=== PATIENT | male | born 2000 | race Hispanic/Latino ===

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

== ENCOUNTER 2021-05-02 11:13 | Emergency (ER) | payer BC, OTHER ==
--- OUTSIDE RECORDS SUMMARY | 2021-05-02 11:16 | XMS REPORT | Continuity of Care Document ---
:[address] [facility] t Address [address] [place] [address] Care Team Providers Name Role Phone Paulojhoana Emily JACKSON Attending Clinician Lab, Fam Pob I Attending Clinician Unavailable Problems This patient has no known problems. Allergies, Adverse Reactions, Alerts This patient has no known allergies or adverse reactions. Medications This patient has no known medications. Procedures This patient has no known procedures. Encounters Start End Encounter Admission Attending Care Care Encounter Source Date/Time Date/Time Type Type Clinicians Facility Department ID 2021-01-02 2021-01-02 Emergency Kristin [facility] [id number] 10:57:00 12:46:00 Deidra Diaz [place] [id number] [place] [id number] [place] [phone] [id number] 2020-03-18 2020-03-21 Laboratory Lab, [facility] [id number] 08:40:00 09:04:56 Only Fam Pob I Health [id number] [place] [id number] [facility] [phone] nal [address] Results This patient has no known results.
--- NOTE | 2021-05-02 11:50 | EDPHYS ---
Physician Documentation [facility] Name: Omar Steele Age: 21 yrs Sex: Male : 2000 Arrival Date: 05/02/2021 Time: 11:20 Bed Waiting Private MD: ED Physician Guanaco Luu HPI: 05/02 11:45 This 21 yrs old Male presents to ER via Ambulatory with complaints of Shoulder rn Pain, neck pain. 11:45 The patient or guardian complains of pain. right trapezius and right rn sternocleidomastoid. Context: The problem was sustained at home, resulted from an unknown reason, The patient reports no decreased range of motion. The patient reports no obvious deformity. Onset: The symptoms/episode began/occurred 3 day(s) ago. Modifying factors: the symptoms are alleviated by remaining still, The symptoms are aggravated by movement. Associated signs and symptoms: Pertinent negatives: chest pain, shortness of breath, tingling. Severity of symptoms: At their worst the symptoms were moderate, in the emergency department the symptoms are unchanged. The patient has not experienced similar symptoms in the past. The patient has not recently seen a physician. Patient reports 2 or 3 days of right posterior neck pain and right trapezius pain, radiates to right shoulder. 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 No weakness or numbness of the arm. States tried tramadol not helping. Denies chest pain. - Immunization history:: Client reports having NOT received the Covid vaccine. - Family history:: not pertinent. - Hospitalizations: : No recent hospitalization is reported. ROS: 11:45 Constitutional: Negative for fever, chills, and weight loss, Eyes: Negative for injury, rn pain, redness, and discharge, ENT: Negative for injury, pain, and discharge, Neck: Positive for injury and pain Cardiovascular: Negative for chest pain, palpitations, and edema, Respiratory: Negative for shortness of breath, cough, wheezing, and pleuritic chest pain, Back: Negative for injury and pain, MS/Extremity: Negative for injury and deformity, Skin: Negative for injury, rash, and discoloration, Neuro: Negative for headache, weakness, numbness, tingling, and seizure. Exam: 11:45 Constitutional: This is a well developed, well nourished patient who is awake, alert, rn and in no acute distress. Head/Face: Normocephalic, atraumatic. Eyes: Pupils equal round and reactive to light, extra-ocular motions intact. Lids and lashes normal. Conjunctiva and sclera are non-icteric and not injected. Cornea within normal limits. Periorbital areas with no swelling, redness, or edema. Neck: No midline tenderness Chest/axilla: Normal chest wall appearance and motion. Nontender with no deformity. No lesions are appreciated. Skin: Warm, dry with normal turgor. Normal color with no rashes, no lesions, and no evidence of cellulitis. MS/ Extremity: Pulses equal, no cyanosis. Neurovascular intact. Full, normal range of motion. Equal circumference. No bony tenderness. Neuro: Awake and alert, GCS 15, oriented to person, place, time, and situation. Cranial nerves II-XII grossly intact. Motor strength 5/5 in all extremities. Sensory grossly intact. Cerebellar exam normal. Normal gait. Vital Signs: 11:31 BP 143 / 75; Pulse 71; Resp 18; Temp 98.5; Pulse Ox 100% on R/A; da3 MDM: 11:45 Differential diagnosis: tendonitis, Muscle spasm, radiculopathy. Data reviewed: vital rn signs, nurses notes, and as a result, I will discharge patient. Counseling: I had a detailed discussion with the patient and/or guardian regarding: the historical points, exam findings, and any diagnostic results supporting the discharge/admit diagnosis, the need for outpatient follow up, to return to the emergency department if symptoms worsen or persist or if there are any questions or concerns that arise at home. Special discussion: I discussed with the patient/guardian in detail that at this point there is no indication for admission to the hospital. It is understood, however, that if the symptoms persist or worsen the patient needs to return immediately for re-evaluation. 11:49 Patient medically screened. rn 11:55 ED course: Patient declines any prescriptions. States he is going to go to the rn [employer]men[employer]. doctor.. Administered Medications: No medications were administered Disposition Summary: 05/02/21 11:49 Discharge Ordered Location: Home rn Problem: new rn Symptoms: are unchanged rn Condition: Stable rn Diagnosis - Sprain of joints and ligaments of other parts of neck, initial encounter rn - Radiculopathy, cervical region rn - Muscle spasm rn Followup: rn - With: Private Physician - When: As needed - Reason: Recheck today's complaints, Re-evaluation by your physician Discharge Instructions: - Discharge Summary Sheet rn - Cervical Radiculopathy rn - Cervical Sprain rn - Muscle Cramps and Spasms rn Forms: - Medication Reconciliation Form rn - Thank You Letter 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
--- NOTE | 2021-05-02 11:50 | ER ---
Nurse's Notes [facility] Name: Omar Steele Age: 21 yrs Sex: Male : 2000 Arrival Date: 05/02/2021 Time: 11:20 Bed Waiting Private MD: Diagnosis: Sprain of joints and ligaments of other parts of neck, initial encounter;Radiculopathy, cervical region;Muscle spasm Presentation: 05/02 11:28 Chief complaint: Patient states: Right shoulder pain. Coronavirus screen: Client denies da3 travel out of the [place] in the last 14 days. Ebola Screen: No symptoms or risks identified at this time. Risk Assessment: Do you want to hurt yourself or someone else? Patient reports no desire to harm self or others. 11:28 Method Of Arrival: Ambulatory da3 11:28 Acuity: BETTY 5 da3 12:17 Initial Sepsis Screen: Does the patient meet any 2 criteria? No. Patient's initial ss sepsis screen is negative. Does the patient have a suspected source of infection? No. Patient's initial sepsis screen is negative. Onset of symptoms is unknown. Triage Assessment: 11:30 General: Appears in no apparent distress. comfortable, Behavior is calm, cooperative. da3 - Immunization history:: Client reports having NOT received the Covid vaccine. - Family history:: not pertinent. - Hospitalizations: : No recent hospitalization is reported. Screenin:16 Abuse screen: Denies threats or abuse. Denies injuries from another. Nutritional ss screening: No deficits noted. Tuberculosis screening: Never had TB. Fall Risk None identified. Assessment: 12:16 General: Appears in no apparent distress. comfortable, Behavior is calm, cooperative. ss Neuro: Level of Consciousness is awake, alert, obeys commands. Cardiovascular: Capillary refill < 3 seconds is brisk in bilateral fingers Patient's skin is warm and dry. Respiratory: Airway is patent Respiratory effort is even, unlabored, Respiratory pattern is regular, symmetrical. GI: No signs and/or symptoms were reported involving the gastrointestinal system. Derm: Skin is intact, is healthy with good turgor, Skin is dry, Skin is pink, warm \T\ dry. normal. Musculoskeletal: Circulation, motion, and sensation intact. Range of motion: intact in all extremities, Swelling absent. Vital Signs: 11:31 BP 143 / 75; Pulse 71; Resp 18; Temp 98.5; Pulse Ox 100% on R/A; da3 ED Course: 11:20 Patient arrived in ED. mr 11:23 Guanaco Luu MD is Attending Physician. rn 11:30 Triage completed. da3 12:16 Patient has correct armband on for positive identification. Bed in low position. Call ss light in reach. 12:16 No provider procedures requiring assistance completed. Patient did not have IV access ss during this emergency room visit. Administered Medications: No medications were administered Outcome: 11:49 Discharge ordered by . rn 12:16 Discharged to home ambulatory. ss 12:16 Condition: good 12:16 Discharge instructions given to patient, family, Instructed on discharge instructions, follow up and referral plans. medication usage, Demonstrated understanding of instructions, follow-up care, medications, Prescriptions given X 2. 12:18 Patient left the ED. ss Signatures: Silva Gonzalez mr Guanaco Luu MD MD rn Smirch, Shelby, RN RN ss Allan, David, RN RN da3
[2021-05-02 12:22] VITALS: BP 143/75; TEMP 98.5; O2SAT 100
== END 2021-05-02 12:18 | disposition home or self-care (01) ==
LOC: ER 11:13
DX: S13.8XXA Sprain of joints and ligaments of other parts of neck, initial encounter (principal); M54.12 Radiculopathy, cervical region; M62.838 Other muscle spasm
CPT/HCPCS: 99282

== ENCOUNTER 2022-02-13 19:55 | Emergency (ER) | payer BC, OTHER ==
--- OUTSIDE RECORDS SUMMARY | 2022-02-13 19:57 | XMS REPORT | Continuity of Care Document ---
:2000 Author Organization [facility] t Address [address] [place] [address] Care Team Providers Name Role Phone Kristin JACKSON F Attending Clinician Lab, Fam Pob I Attending Clinician Unavailable Izzy JACKSON Attending Clinician Payers Payer Name Policy Type Policy Number Effective Date Expiration Date Kinjal BELL [id number] 2016 [employer] 00:00:00 Problems Condition Condition Condition Status Onset Resolution Last Treating Co mments Source Name Details Category Date Date Treatment Clinician Date Pilonidal Pilonidal Disease Active 2017-09 Overview: Univers cyst cyst 0-03 Added ity of 00:00: automatic [place] 00 ally from Medical request Branch for surgery [id number] Allergies, Adverse Reactions, Alerts Allergy Allergy Status Severity Reaction(s) Onset Inactive Treating Comm ents Source Name Type Date Date Clinician NO KNOWN Drug Active Univers ALLERGIE Class ity of S [facility] Social History Social Habit Start Date Stop Date Quantity Comments Source Exposure to Not sure [facility] SARS-CoV-2 (event) Medica l Branch Tobacco use and 2021-01-02 2021-01-02 Never used [facility] exposure 00:00:00 00:00:00 Medical Branch Sex Assigned At [birth year] [facility] 00:00:00 00:00:00 Medical Branch Smoking Status Start Date Stop Date Source Never smoker [facility] Medical Branch Medications Ordered Filled Start Stop Current Ordering Indication Dosage Frequency Signature Comments Components Source Medication Medication Date Date Medication? Clinician (SIG) Name Name ibuprofen 2020- No 800mg 800 mg, Uni vers (IBU) 01-02 Oral, ity of tablet 800 17:45: 16:56 ONCE, 1 [place] [facility] mg 00 :00 dose, Mon Medical 01/02/21 at Branch 1245, VINAYAK HYDROcodone 2020-0 2020- No 1{tbl} 1 tablet, Univers -acetaminop 01-02 Oral, ity of hen (NORCO) 17:45: 16:56 [place] 10[place]325 [place] 00 :00 dose, Mon Medic al tablet 1 01/02/21 at [facility] h tablet 1245, Routine traMADoL 50 Yes [id number] 50mg Take 1 Univ ers mg tablet 01-02 tablet by ity o f 00:00: mouth [place] 00 every 6 Medical (six) Branch hours as needed for Pain (scale 7-10). Indication s: acute pain ibuprofen Yes [id number] 600mg Take 1 U nivers 600 mg 01-02 tablet by ity of tablet 00:00: mouth [place] 00 every 6 Medical (six) Branch hours as needed for Pain (scale 4-6). methylpheni 2019-0 Yes [id number] Take 2 po Univers date HCl 36 6-19 q am ity of mg 24 hr 00:00: [place] tablet 00 [facility] methylpheni 2019-0 Yes [id number] Take 2 po Univers date HCl 36 6-19 q am ity of mg 24 hr 00:00: [place] tablet 00 [facility] methylpheni 2019-0 Yes [id number] Take 2 po Univers date HCl 36 6-19 q am ity of mg 24 hr 00:00: [place] tablet 00 [facility] methylpheni 2019-0 Yes [id number] Take 2 po Univers date HCl 36 6-19 q am ity of mg 24 hr 00:00: [place] tablet 00 [facility] methylpheni 2019-0 Yes [id number] Take 2 po Univers date HCl 36 6-19 q am ity of mg 24 hr 00:00: [place] tablet 00 [facility] Immunizations Ordered Immunization Filled Immunization Date Status Commen ts Source Name Name Influenza Virus 2018-11-06 Completed Universit y of Vaccine [place] .5 mL IM 00:00:00 [place] [facility] Medical 6+ MO Branch Influenza Virus 2018-11-06 Completed Universit y of Vaccine [place] .5 mL IM 00:00:00 [place] [facility] Medical 6+ MO Branch Influenza Virus 2018-11-06 Completed Universit y of Vaccine [place] .5 mL IM 00:00:00 [place] [facility] 6+ MO Branch Influenza Virus 2018-11-06 Completed Universit y of Vaccine [place] .5 mL IM 00:00:00 [place] [facility] 6+ MO Branch Influenza Virus 2018-11-06 Completed Universit y of Vaccine [place] .5 mL IM 00:00:00 [place] [facility] 6+ MO Branch Meningococcal 2017-04-16 Completed University of Polysaccharide 00:00:00 [place] Medi bruce (groups A, C, Y and Branc h W-135) conjugate vaccine (MCV4P) Meningococcal 2017-04-16 Completed University of Polysaccharide 00:00:00 [place] Medi bruce (groups A, C, Y and Branc h W-135) conjugate vaccine (MCV4P) Meningococcal 2017-04-16 Completed University of Polysaccharide 00:00:00 [place] Medi bruce (groups A, C, Y and Branc h W-135) conjugate vaccine (MCV4P) Meningococcal 2017-04-16 Completed University of Polysaccharide 00:00:00 [place] Medi bruce (groups A, C, Y and Branc h W-135) conjugate vaccine (MCV4P) Meningococcal 2017-04-16 Completed University of Polysaccharide 00:00:00 [place] Medi bruce (groups A, C, Y and Branc h W-135) conjugate vaccine (MCV4P) Vital Signs Vital Name Observation Time Observation Value Comments Source Systolic blood 2021-01-02 15:55:00 173 [facility] Diastolic blood 2021-01-02 15:55:00 87 mm[Hg] [facility] Heart rate 2021-01-02 15:55:00 92 /min [facility] Body temperature 2021-01-02 15:55:00 36.83 Iliana [facility] Respiratory rate 2021-01-02 15:55:00 18 /min [facility] Body weight 2021-01-02 15:55:00 125.193 kg [facility] Oxygen saturation in 2021-01-02 15:55:00 100 /min [facility] Arterial blood by [facility] Pulse oximetry Branch Systolic blood 2021-01-02 15:55:00 173 mm[Hg] Univer sity of pressure [facility] Diastolic blood 2021-01-02 15:55:00 87 mm[Hg] Unive rsity of pressure [facility] Heart rate 2021-01-02 15:55:00 92 /min [facility] Body temperature 2021-01-02 15:55:00 36.83 Iliana [facility] Respiratory rate 2021-01-02 15:55:00 18 /min [facility] Body weight 2021-01-02 15:55:00 125.193 kg [facility] Oxygen saturation in 2021-01-02 15:55:00 100 /min [facility] Arterial blood by [facility] Pulse oximetry Branch Procedures Procedure Date / Time Performed Performing Clinician Sour e NOTICE OF PRIVACY 2021-01-02 15:51:12 Doctor Unassigned, No [facility] PRACTICES Name [facility] CONSENT/REFUSAL FOR 2021-01-02 15:50:28 [facility] AND Name [facility] TREATMENT Encounters Start End Encounter Admission Attending Care Care Encounter Source Date/Time Date/Time Type Type Clinicians Facility Department ID 2021-07-09 Emergency [facility] [id number] [facility] [place] 15:14:56 ity [facility] [place] 2021-01-02 2021-01-02 Emergency [facility] [id number] 10:57:00 12:46:00 Deidra De La Torre [id number] [place] [address] [place] [address] [id number] [facility] 2021-01-02 2021-01-02 Emergency [facility] [id number] [facility] [place] 10:57:00 12:46:00 [facility]id[id number] [place] [address] [id number] [place] [address] Branch 2020-03-18 2020-03-21 Laboratory Lab, [facility] [id number] 08:40:00 09:04:56 Only Fam Pob I Health [id number] [place] [id number] [place] [phone] nal 0[address] 2020-03-18 2020-03-21 Laboratory Lab, Adc Fam Pob I [facility] [id number] Univers 08:40:00 09:04:56 Only Izzy Fern [facility] [id number] ity of [place] [id number] [place] as Margie [phone] [place] dical [address] 2020-03-18 2020-03-18 Outpatient R [facility] [id number] Univers 08:40:00 08:40:00 ity [facility] [place] 2020-03-18 2020-03-18 Outpatient R [facility] [id number] Univers 08:40:00 08:40:00 [facility] Results This patient has no known results.
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
--- NOTE | 2022-02-13 21:27 | EDPHYS ---
Physician Documentation [facility] Name: Omar Steele Age: 21 yrs Sex: Male : 2000 Arrival Date: 02/13/2022 Time: 19:58 Bed 20 Private MD: ED Physician Silas López HPI: 02/13 20:45 This 21 yrs old Male presents to ER via Ambulatory with complaints of Burn. mh7 20:45 The patient presents with a burn as a result of a chemical exposure, Methyl Ethyl mh7 Ketone(MEK), at work, is located on the left lower quadrant. Onset: The symptoms/episode began/occurred today, at 08:00. Burn type and severity: 2nd degree: approximately 2% total body surface area of second degree injury, of the left lower quadrant. Associated signs and symptoms: none. The patient did not suffer any apparent inhalation injury, The patient had no loss of consciousness. States that chemical MEK accidentally spilled onto left lower abdominal area at work this morning. 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 He states that it has become more irritated and blistered since this morning. Denies any other symptoms.. Historical: - Allergies: 20:05 No Known Allergies; jb4 - PMHx: 20:05 ADD/ADHD; jb4 - PSHx: 20:05 Appendectomy; jb4 - Immunization history:: Adult Immunizations up to date. - Social history:: Smoking status: Patient reports the use of cigarette tobacco products, denies chronic smoking, but will smoke occasionally. ROS: 20:45 Constitutional: Negative for fever, chills, and weight loss, Eyes: Negative for injury, mh7 pain, redness, and discharge, ENT: Negative for injury, pain, and discharge, Neck: Negative for injury, pain, and swelling, Cardiovascular: Negative for chest pain, palpitations, and edema, Respiratory: Negative for shortness of breath, cough, wheezing, and pleuritic chest pain, Abdomen/GI: Negative for abdominal pain, nausea, vomiting, diarrhea, and constipation, Back: Negative for injury and pain, : Negative for injury, bleeding, discharge, and swelling, MS/Extremity: Negative for injury and deformity, Neuro: Negative for headache, weakness, numbness, tingling, and seizure, Psych: Negative for depression, anxiety, suicide ideation, homicidal ideation, and hallucinations, Allergy/Immunology: Negative for hives, rash, and allergies, Endocrine: Negative for neck swelling, polydipsia, polyuria, polyphagia, and marked weight changes, Hematologic/Lymphatic: Negative for swollen nodes, abnormal bleeding, and unusual bruising. Exam: 20:45 Constitutional: This is a well developed, well nourished patient who is awake, alert, mh7 and in no acute distress. Head/Face: Normocephalic, atraumatic. Eyes: Pupils equal round and reactive to light, extra-ocular motions intact. Lids and lashes normal. Conjunctiva and sclera are non-icteric and not injected. Cornea within normal limits. Periorbital areas with no swelling, redness, or edema. Neck: Trachea midline, no thyromegaly or masses palpated, and no cervical lymphadenopathy. Supple, full range of motion without nuchal rigidity, or vertebral point tenderness. No Meningismus. Chest/axilla: Normal chest wall appearance and motion. Nontender with no deformity. No lesions are appreciated. Cardiovascular: Regular rate and rhythm with a normal S1 and S2. No gallops, murmurs, or rubs. Normal PMI, no JVD. No pulse deficits. Respiratory: Lungs have equal breath sounds bilaterally, clear to auscultation and percussion. No rales, rhonchi or wheezes noted. No increased work of breathing, no retractions or nasal flaring. Back: No spinal tenderness. No costovertebral tenderness. Full range of motion. MS/ Extremity: Pulses equal, no cyanosis. Neurovascular intact. Full, normal range of motion. Neuro: Awake and alert, GCS 15, oriented to person, place, time, and situation. Cranial nerves II-XII grossly intact. Motor strength 5/5 in all extremities. Sensory grossly intact. Cerebellar exam normal. Normal gait. Psych: Awake, alert, with orientation to person, place and time. Behavior, mood, and affect are within normal limits. Vital Signs: 20:03 BP 145 / 91; Pulse 91; Resp 16; Temp 98.1; Pulse Ox 100% on R/A; Weight 120.2 kg (R); jb4 Height 5 ft. 5 in. (165.10 cm) (R); Pain 8/10; 21:57 BP 139 / 81; Pulse 86; Resp 16; Pulse Ox 100% on R/A; lg3 20:03 Body Mass Index 44.10 (120.20 kg, 165.10 cm) jb4 MDM: 21:21 Differential diagnosis: 1st degree martin, 2nd degree martin, 3rd degree martin, mh7 Dermatitis. Data reviewed: vital signs, nurses notes. Data interpreted: Pulse oximetry: on room air is 100 %. Interpretation: normal. Counseling: I had a detailed discussion with the patient and/or guardian regarding: the historical points, exam findings, and any diagnostic results supporting the discharge/admit diagnosis, the presence of at least one elevated blood pressure reading (>120/80) during this emergency department visit, the need for outpatient follow up, a material mover. ED course: Poison control contacted and stated current appearance of skin most likely due to use of acetone to area. They recommended triple antibiotic ointment or A\T\D ointment and follow up.. 21:27 Patient medically screened. [facility] Administered Medications: 21:48 CANCELLED (Physician Discretion): Triple Antibiotic ([id number]) lg3 Ointment 1 application Topical once Disposition Summary: 02/13/22 21:27 Discharge Ordered Location: Home [facility] Problem: new [facility] Symptoms: have improved [facility] Condition: Stable 7 Diagnosis - Contact with and (suspected) exposure to hazardous, chiefly nonmedicinal, chemicals 7 - Burn of second degree of abdominal wall - Dermatitis [facility] Followup: 7 - With: Private Physician - When: 1 - 2 days - Reason: Wound Recheck, Worsening of condition, Recheck today's complaints, Continuance of care, Re-evaluation by your physician Followup: 7 - With: Dario Rosales MD - When: 1 - 2 days - Reason: Worsening of condition, Recheck today's complaints Followup: [facility] - With: Christo Jay MD - When: 1 - 2 days - Reason: Worsening of condition, Recheck today's complaints Discharge Instructions: - Discharge Summary Sheet [facility] - Chemical Burn, Adult, [id number] 7 - Contact Dermatitis, Bgzy-nt-Bnay [facility] Forms: - Medication Reconciliation Form [facility] - Thank You Letter [facility] - Antibiotic Education [facility] - Prescription Opioid Use [facility] Prescriptions: - Triple Antibiotic - Apply to affected area 1 application by TOPICAL route 2-3 times daily for 7 7 days; 1 tube; Refills: 0, Product Selection Permitted Signatures: Alex Henson RN RN jb4 Silas López MD MD 7 Aline Mckinnon RN lg3 Corrections: (The following items were deleted from the chart) 21:48 21:20 Triple Antibiotic ([id number]) Ointment 1 application Topical lg3 once ordered. [facility]
[2022-02-13] MEDS ORDERED: BACI/NEOMYCIN/POLY OINT 15GM TOP ONE (21:38)
[2022-02-13 22:22] VITALS: TEMP 98.1; O2SAT 100
[2022-02-13 22:23] VITALS: BP 139/81
== END 2022-02-13 21:58 | disposition home or self-care (01) ==
LOC: ER 19:55
DX: T21.22XA Burn of second degree of abdominal wall, initial encounter (principal); L30.9 Dermatitis, unspecified; Z77.098 Contact with and (suspected) exposure to other hazardous, chiefly nonmedicinal, chemicals; Z72.0 Tobacco use
CPT/HCPCS: 99282